=== PATIENT | male | born 1940 | race Caucasian/White ===

== ENCOUNTER 2016-08-21 10:38 | Inpatient (IN) ==
[2016-08-21] MEDS ORDERED: *HR* OxyCODONE Immed Rel 5 MG TABLET PO PRN (11:11)
[2016-08-21] MEDS: *HR* OxyCODONE Immed Rel 5 MG TABLET PO PRN (11:24)
--- NOTE | 2016-08-21 11:32 | Internal Med History&Physical ---
Date of Encounter: 08/21/16 Time of Encounter: 11:29 Assessment and Plan (1) Total knee replacement status Current visit: Yes Status: Acute Patient had total knee replacement he was transferred here for rehabilitation. Qualifiers: Laterality: left Qualified Code(s): Z96.652 - Presence of left artificial knee joint Internal Medicine - H&P: HPI Admitted From: Hospital to Hospital Transfer Plans for Post Hospital Care: Home History of present illness: Mr. Mcgrath is a 75 year old male She is here now for rehabilitation status post Past Med Surg Social Fam HX - Past Medical History Medical history: arthritis, coronary artery disease, hyperlipidemia, hypertension Psychiatric history: no psych history - Social History Smoking Status: Former smoker Smokeless Tobacco Status: No Alcohol use: none Drug use: none - Family History Father Living Status: Cause of : blood poisoning Mother Living Status: Cause of : mi/ diabetes Hx Family Cardiac Disorders: Yes Hx Family Endocrine Disorder: Yes Internal Medicine - H&P: Meds Aspirin Enteric Coated [Aspirin EC] 325 mg PO DAILY #21 tablet. 08/18/16 [Rx] OxyCODONE Immed Rel [Roxicodone 5 MG] 5 - 10 mg PO DAILY #14 tablet 08/18/16 [Rx ] Ascorbic Acid [Vitamin C] 600 mg PO DAILY 08/19/16 [History] Aspirin [Lo-Dose Aspirin EC] 81 mg PO DAILY 08/19/16 [History] Atorvastatin [Lipitor] 40 mg PO HS 08/19/16 [History] Cyanocobalamin (Vitamin B-12) [Vitamin B-12] 1,000 mcg SL DAILY 08/19/16 [ History] Ibuprofen [Motrin] 600 mg PO Q8HR PRN 08/19/16 [History] Lisinopril [Zestril] 20 mg PO DAILY 08/19/16 [History] Multivitamin [One Daily Essential] 1 each PO DAILY 08/19/16 [History] Omeprazole 20 mg PO DAILY 08/19/16 [History] Oxycodone HCl/Acetaminophen [Percocet 10-325 mg Tablet] 1 each PO Q6H PRN [History] Allergies No Known Allergies Allergy (Verified 08/19/16 07:45) All Systems PM: A 10-system review of systems was performed and is negative for pertinent findings except as documented above in the HPI. - Constitutional Vitals: Temp Pulse Resp BP Pulse Ox 98.1 F 106 20 164/91 92 08/21/16 10:54 08/21/16 10:54 08/21/16 10:54 08/21/16 10:54 08/21/16 10:54 - Head Head exam: Present: atraumatic, normal inspection, normocephalic - Neck Neck exam general surgery: Present: supple, trachea midline. Absent: lymphadenopathy - Respiratory Respiratory exam: Present: CTAB. Absent: accessory muscle use, rales, rhonchi, wheezes - Cardiovascular Cardiovascular exam: Present: RRR, +S1, +S2. Absent: diastolic murmur, gallop, rubs, systolic murmur Internal Med - H&P Results - Labs Labs: Pending
[2016-08-21] MEDS ORDERED: Ibuprofen 800 MG TABLET PO ONE (12:13)
[2016-08-22 05:16] LABS: INR 1.1; Prothrombin Time 12.4 Seconds (9.4-12.1)
[2016-08-22 05:17] LABS: Activated Partial Thrombo Time 25.5 Seconds (26.0-36.0)
[2016-08-22 05:18] LABS: Basophils # 0.1 K/mcL (0.0-0.2); Basophils % 0.4 %; Eosinophils # 0.2 K/mcL (0.0-0.6); Eosinophils % 1.3 %; Hematocrit 33.3 % (37.5-50.1); Hemoglobin 11.1 g/dL (12.9-16.9); Immature Granulocytes % 1.9 % (0-4); Lymphocytes % 12.8 %; Mean Corpuscular HGB Conc 33.3 g/dL (31.6-35.5); Mean Corpuscular Hemoglobin 29.8 pg (28.0-33.3); Mean Corpuscular Volume 89.5 fL (83.0-100.0); Mean Platelet Volume 9.5 fL (9.4-12.4); Monocytes # 1.7 K/mcL (0.0-1.3); Monocytes % 10.5 %; Neutrophils # 11.5 K/mcL (1.6-8.9); Platelet Count 165 K/mcL (140-400); Red Blood Count 3.72 M/mcL (4.19-5.50); Segmented Neutrophils % 73.1 %
[2016-08-22] MEDS: *HR* OxyCODONE Immed Rel 5 MG TABLET PO PRN ×4 (05:30→21:55)
[2016-08-22 05:41] LABS: BUN/Creatinine Ratio 19 (6-26); Blood Urea Nitrogen 21 mg/dL (8-26); Calcium 9.2 mg/dL (8.6-10.8); Carbon Dioxide 25 mEq/L (19-29); Chloride 104 mEq/L (98-109); Glucose 114 mg/dL (70-99); Osmolality,Calculated 292 (280-300); Potassium 4.1 mEq/L (3.5-4.5); Sodium 139 mEq/L (136-145); eGFR For African Americans > 60 (> 60); eGFR For Non-African Americans > 60 (> 60)
[2016-08-22] MEDS: Lisinopril 20 MG TABLET PO SCH (09:04)
[2016-08-22] MEDS: Ibuprofen 800 MG TABLET PO PRN (09:04)
[2016-08-22] MEDS: Cyanocobalamin (B-12) 1,000 MCG TABLET PO SCH (09:04)
[2016-08-22] MEDS: Multivit/Ca/Min/Fe/FA 1 TAB TABLET PO SCH (09:04)
[2016-08-22] MEDS: Ascorbic Acid 500 MG TABLET PO SCH (09:04)
--- NOTE | 2016-08-22 13:12 | Internal Med Progress Note ---
Date of Encounter: 08/22/16 Time of Encounter: 13:11 - Assessment and plan (1) Total knee replacement status Current Visit: Yes Status: Acute Assessment and plan: Patient is here for total knee replacement status post for osteoarthritis Qualifiers: Laterality: left Qualified Code(s): Z96.652 - Presence of left artificial knee joint - Time Spent With Patient less than 15 minutes - Subjective Interval history: Patient is here for a total knee replacement and rehabilitation. - Constitutional Vitals: Temp Pulse Resp BP Pulse Ox 98.2 F 98 16 150/89 95 08/22/16 07:33 08/22/16 07:33 08/22/16 07:33 08/22/16 07:33 08/22/16 07:33 - Head Head exam: Present: atraumatic, normocephalic - Neck Neck exam general surgery: Present: supple, trachea midline. Absent: lymphadenopathy - Respiratory Respiratory exam: Present: CTAB. Absent: accessory muscle use, rales, rhonchi, wheezes - Cardiovascular Cardiovascular exam: Present: RRR, +S1, +S2. Absent: diastolic murmur, gallop, rubs, systolic murmur Internal Medicine: Result - Labs CBC & Chem 7: 08/22/16 05:02 08/22/16 05:02 Labs: Short CBC 08/22/16 Range/Units 05:02 WBC 15.7 H (4.3-11.1) K/mcL Hgb 11.1 L (12.9-16.9) g/dL Hct 33.3 L (37.5-50.1) % Plt Count 165 (140-400) K/mcL Neutrophils # 11.5 H (1.6-8.9) K/mcL BMP 08/22/16 05:02 Sodium 139 Potassium 4.1 Chloride 104 Carbon Dioxide 25 BUN 21 Creatinine 1.10 Glucose 114 H Calcium 9.2 His white count salivated. I am going to check a chest x-ray. The dressing looks stable some old blood and I will check a urine 2. - ABG Interpretation ABG results: PT/INR, D-dimer PT 12.4 Seconds (9.4-12.1) H 08/22/16 05:02 Consult Discharge Plan - Plan Referrals: Rodolfo Madrigal DO [Primary Care Provider] -
[2016-08-22] MEDS: Aspirin Enteric Coated 325 MG Tablet PO SCH ×2 (15:52→21:55)
[2016-08-23] MEDS: *HR* OxyCODONE Immed Rel 5 MG TABLET PO PRN ×3 (06:14→22:10)
[2016-08-23] MEDS: Aspirin Enteric Coated 325 MG Tablet PO SCH ×2 (08:41→22:10)
[2016-08-23] MEDS: Lisinopril 20 MG TABLET PO SCH (08:41)
[2016-08-23] MEDS: Cyanocobalamin (B-12) 1,000 MCG TABLET PO SCH (08:41)
[2016-08-23] MEDS: Ascorbic Acid 500 MG TABLET PO SCH (08:41)
[2016-08-23] MEDS: Ibuprofen 800 MG TABLET PO PRN (08:41)
[2016-08-23] MEDS: Multivit/Ca/Min/Fe/FA 1 TAB TABLET PO SCH (08:41)
[2016-08-23 10:37] LABS: Basophils # 0.1 K/mcL (0.0-0.2); Basophils % 0.4 %; Eosinophils % 0.8 %; Hematocrit 33.9 % (37.5-50.1); Immature Granulocytes % 2.3 % (0-4); Lymphocytes # 1.7 K/mcL (0.6-4.6); Lymphocytes % 9.3 %; Mean Corpuscular HGB Conc 32.4 g/dL (31.6-35.5); Mean Corpuscular Hemoglobin 29.6 pg (28.0-33.3); Mean Corpuscular Volume 91.1 fL (83.0-100.0); Mean Platelet Volume 9.9 fL (9.4-12.4); Monocytes # 1.6 K/mcL (0.0-1.3); Monocytes % 8.5 %; Neutrophils # 14.5 K/mcL (1.6-8.9); Platelet Count 210 K/mcL (140-400); Red Blood Count 3.72 M/mcL (4.19-5.50); Red Cell Distribution Width 14.1 % (11.5-14.5); Segmented Neutrophils % 78.7 %
[2016-08-23 10:45] LABS: Eosinophils # 0.2 K/mcL (0.0-0.6)
--- NOTE | 2016-08-23 13:58 | Internal Med Progress Note ---
Date of Encounter: 08/23/16 Time of Encounter: 13:56 - Assessment and plan (1) Total knee replacement status Current Visit: Yes Status: Acute Assessment and plan: Patient is working with PT OT and TR. Qualifiers: Laterality: left Qualified Code(s): Z96.652 - Presence of left artificial knee joint - Time Spent With Patient less than 15 minutes - Subjective Interval history: Patient is here for a total knee replacement and rehabilitation. - Constitutional Vitals: Temp Pulse Resp BP Pulse Ox 98.1 F 116 16 101/71 96 08/23/16 07:00 08/23/16 07:00 08/23/16 07:00 08/23/16 07:00 08/23/16 07:00 - Head Head exam: Present: atraumatic, normal inspection, normocephalic - Neck Neck exam general surgery: Present: supple, trachea midline. Absent: lymphadenopathy - Respiratory Respiratory exam: Present: CTAB. Absent: accessory muscle use, rales, rhonchi, wheezes - Cardiovascular Cardiovascular exam: Present: RRR, +S1, +S2. Absent: diastolic murmur, gallop, rubs, systolic murmur Internal Medicine: Result - Labs CBC & Chem 7: 08/23/16 10:30 08/22/16 05:02 Labs: Short CBC 08/23/16 Range/Units 10:30 WBC 18.4 H (4.3-11.1) K/mcL Hgb 11.0 L (12.9-16.9) g/dL Hct 33.9 L (37.5-50.1) % Plt Count 210 (140-400) K/mcL Neutrophils # 14.5 H (1.6-8.9) K/mcL White count is up but the chest x-ray is clear and the lab looks good. Probably should check a UA - ABG Interpretation ABG results: PT/INR, D-dimer PT 12.4 Seconds (9.4-12.1) H 08/22/16 05:02 - Impressions Impressions Chest X-Ray 08/23/16 13:13 IMPRESSION: No acute cardiopulmonary disease. D/ / 08/23/2016 07:46:11 Hemanth Coleman MD / charan Interpreting Provider: Hemanth Coleman MD Consult Discharge Plan - Plan Referrals: Rodolfo Madrigal DO [Primary Care Provider] -
[2016-08-23 16:04] LABS: Bilirubin,Urine Negative (Negative); Blood,Urine Negative (Negative); Clarity,Urine Clear (Clear); Color,Urine Yellow (Yellow); Glucose,Urine (UA) Normal (Normal); Ketones,Urine Negative (Negative); Leukocyte Esterase,Urine Small (Negative); Nitrite,Urine Negative (Negative); PH,Urine 5.5 pH Units (5.0-8.0); Protein,Urine Negative (Neg-Trace); Urobilinogen,Urine Normal (Normal)
[2016-08-24] MEDS: *HR* OxyCODONE Immed Rel 5 MG TABLET PO PRN ×3 (05:27→21:31)
[2016-08-24 05:36] LABS: Basophils # 0.1 K/mcL (0.0-0.2); Basophils % 0.4 %; Eosinophils # 0.2 K/mcL (0.0-0.6); Eosinophils % 1.6 %; Hematocrit 30.8 % (37.5-50.1); Hemoglobin 10.1 g/dL (12.9-16.9); Immature Granulocytes % 2.7 % (0-4); Lymphocytes # 1.9 K/mcL (0.6-4.6); Lymphocytes % 13.1 %; Mean Corpuscular HGB Conc 32.8 g/dL (31.6-35.5); Mean Corpuscular Hemoglobin 29.7 pg (28.0-33.3); Mean Corpuscular Volume 90.6 fL (83.0-100.0); Mean Platelet Volume 9.5 fL (9.4-12.4); Monocytes # 1.3 K/mcL (0.0-1.3); Monocytes % 9.3 %; Platelet Count 201 K/mcL (140-400); Segmented Neutrophils % 72.9 %
[2016-08-24 05:37] LABS: Neutrophils # 10.4 K/mcL (1.6-8.9)
[2016-08-24] MEDS: Ascorbic Acid 500 MG TABLET PO SCH (09:28)
[2016-08-24] MEDS: Lisinopril 20 MG TABLET PO SCH (09:28)
[2016-08-24] MEDS: Aspirin Enteric Coated 325 MG Tablet PO SCH ×2 (09:28→21:31)
[2016-08-24] MEDS: Cyanocobalamin (B-12) 1,000 MCG TABLET PO SCH (09:28)
[2016-08-24] MEDS: Multivit/Ca/Min/Fe/FA 1 TAB TABLET PO SCH (09:28)
[2016-08-24] MEDS: Ibuprofen 800 MG TABLET PO PRN (09:31)
--- NOTE | 2016-08-24 11:56 | Internal Med Progress Note ---
Date of Encounter: 08/24/16 Time of Encounter: 11:54 - Assessment and plan (1) Total knee replacement status Current Visit: Yes Status: Acute Assessment and plan: . PT OT working on improving balance, ambulation, transfer, gait. Patient hesitant with ambulation. Attempting to hop and perform not weight bearing pattern Qualifiers: Laterality: left Qualified Code(s): Z96.652 - Presence of left artificial knee joint (2) Leukocytosis, unspecified Current Visit: Yes Status: Acute Assessment and plan: WBC from 18 K to 14 K. Afebrile. Chest x-ray urinalysis unremarkable. We will continue to monitor Qualifiers: Leukocytosis type: unspecified Qualified Code(s): D72.829 - Elevated white blood cell count, unspecified - Time Spent With Patient less than 15 minutes - Subjective Interval history: Complains of mild postop knee pain. No shortness of breath. No cough. No fever. No chills. - Constitutional Vitals: Temp Pulse Resp BP Pulse Ox 98.5 F 99 18 127/68 95 08/24/16 07:13 08/24/16 07:13 08/24/16 07:13 08/24/16 07:13 08/24/16 07:13 General appearance: Present: A&O X 3, pleasant, no acute distress - Respiratory Respiratory exam: Present: CTAB. Absent: accessory muscle use, rales, rhonchi, wheezes - Cardiovascular Cardiovascular exam: Present: RRR, +S1, +S2. Absent: diastolic murmur, gallop, rubs, systolic murmur - GI/Abdominal GI/Abdominal exam: Present: normal bowel sounds, soft, no peritoneal signs. Absent: distended, tenderness - Expanded Lower Extremities Exam Knee exam: Present: ecchymosis, swelling, tenderness - Incison Incision: Present: clean and dry Internal Medicine: Result - Labs CBC & Chem 7: 08/24/16 05:15 08/22/16 05:02 Labs: Short CBC 08/24/16 Range/Units 05:15 WBC 14.2 H (4.3-11.1) K/mcL Hgb 10.1 L (12.9-16.9) g/dL Hct 30.8 L (37.5-50.1) % Plt Count 201 (140-400) K/mcL Neutrophils # 10.4 H (1.6-8.9) K/mcL Urine 08/23/16 Range/Units 13:00 Urine Color Yellow (Yellow) Urine Clarity Clear (Clear) Urine pH 5.5 (5.0-8.0) pH Units Ur Specific [place] 1.010 (1.010-1.025) Urine Protein Negative (Neg-Trace) mg/dL Urine Glucose (UA) Normal (Normal) mg/dL - ABG Interpretation ABG results: PT/INR, D-dimer PT 12.4 Seconds (9.4-12.1) H 08/22/16 05:02 Consult Discharge Plan - Plan Referrals: Rodolfo Madrigal DO [Primary Care Provider] -
[2016-08-25] MEDS: Ibuprofen 800 MG TABLET PO PRN (02:27)
[2016-08-25] MEDS: Multivit/Ca/Min/Fe/FA 1 TAB TABLET PO SCH (10:08)
[2016-08-25] MEDS: Lisinopril 20 MG TABLET PO SCH (10:08)
[2016-08-25] MEDS: Ascorbic Acid 500 MG TABLET PO SCH (10:09)
[2016-08-25] MEDS: Cyanocobalamin (B-12) 1,000 MCG TABLET PO SCH (10:09)
[2016-08-25] MEDS: Aspirin Enteric Coated 325 MG Tablet PO SCH ×2 (10:09→22:51)
[2016-08-25] MEDS: *HR* OxyCODONE Immed Rel 5 MG TABLET PO PRN ×2 (13:34→23:42)
[2016-08-26 05:50] LABS: Basophils # 0.1 K/mcL (0.0-0.2); Basophils % 0.5 %; Eosinophils # 0.2 K/mcL (0.0-0.6); Eosinophils % 1.4 %; Hematocrit 31.7 % (37.5-50.1); Hemoglobin 10.3 g/dL (12.9-16.9); Immature Granulocytes % 2.1 % (0-4); Lymphocytes # 2.1 K/mcL (0.6-4.6); Lymphocytes % 15.8 %; Mean Corpuscular HGB Conc 32.5 g/dL (31.6-35.5); Mean Corpuscular Hemoglobin 29.5 pg (28.0-33.3); Mean Corpuscular Volume 90.8 fL (83.0-100.0); Mean Platelet Volume 9.3 fL (9.4-12.4); Monocytes # 1.4 K/mcL (0.0-1.3); Monocytes % 10.9 %; Platelet Count 253 K/mcL (140-400); Red Blood Count 3.49 M/mcL (4.19-5.50); Red Cell Distribution Width 13.9 % (11.5-14.5); Segmented Neutrophils % 69.3 %
[2016-08-26 05:54] LABS: Neutrophils # 9.2 K/mcL (1.6-8.9)
[2016-08-26] MEDS: *HR* OxyCODONE Immed Rel 5 MG TABLET PO PRN ×3 (05:58→17:59)
[2016-08-26 06:07] LABS: BUN/Creatinine Ratio 24 (6-26); Blood Urea Nitrogen 28 mg/dL (8-26); Carbon Dioxide 23 mEq/L (19-29); Chloride 107 mEq/L (98-109); Glucose 107 mg/dL (70-99); Osmolality,Calculated 294 (280-300); Potassium 4.8 mEq/L (3.5-4.5); Sodium 139 mEq/L (136-145); eGFR For African Americans > 60 (> 60); eGFR For Non-African Americans > 60 (> 60)
[2016-08-26] MEDS: Lisinopril 20 MG TABLET PO SCH (08:54)
[2016-08-26] MEDS: Aspirin Enteric Coated 325 MG Tablet PO SCH ×2 (08:54→20:02)
[2016-08-26] MEDS: Multivit/Ca/Min/Fe/FA 1 TAB TABLET PO SCH (08:54)
[2016-08-26] MEDS: Cyanocobalamin (B-12) 1,000 MCG TABLET PO SCH (08:54)
[2016-08-26] MEDS: Ibuprofen 800 MG TABLET PO PRN (08:54)
[2016-08-26] MEDS: Ascorbic Acid 500 MG TABLET PO SCH (08:54)
[2016-08-26] MEDS ORDERED: *HR* OxyCODONE Immed Rel 5 MG TABLET PO PRN (12:17)
--- NOTE | 2016-08-26 13:55 | Internal Med Progress Note ---
Date of Encounter: 08/26/16 Time of Encounter: 13:53 - Assessment and plan (1) Total knee replacement status Current Visit: Yes Status: Acute Assessment and plan: Patient's here for rehabilitation status post knee replacement. It is noted today that he has about 3 mm pretibial edema. Homans is negative but it is shiny and tight. I am increasing his Lasix elevating the leg between therapies and after work and also use the ice or polar pack Qualifiers: Laterality: left Qualified Code(s): Z96.652 - Presence of left artificial knee joint - Time Spent With Patient less than 15 minutes - Subjective Interval history: Patient is here for a total knee replacement and rehabilitation. Patient's here for rehabilitation status post left total knee replaced - Constitutional Vitals: Temp Pulse Resp BP Pulse Ox 98.2 F 85 16 137/79 93 08/26/16 07:25 08/26/16 07:25 08/26/16 07:25 08/26/16 07:25 08/26/16 07:25 General appearance: Present: A&O X 3, pleasant, no acute distress - Head Head exam: Present: atraumatic, normocephalic - Neck Neck exam general surgery: Present: supple, trachea midline. Absent: lymphadenopathy - Respiratory Respiratory exam: Present: CTAB. Absent: accessory muscle use, rales, rhonchi, wheezes - Cardiovascular Cardiovascular exam: Present: RRR, +S1, +S2. Absent: diastolic murmur, gallop, rubs, systolic murmur Internal Medicine: Result - Labs CBC & Chem 7: 08/26/16 05:00 08/26/16 05:00 Labs: Short CBC 08/26/16 Range/Units 05:00 WBC 13.2 H (4.3-11.1) K/mcL Hgb 10.3 L (12.9-16.9) g/dL Hct 31.7 L (37.5-50.1) % Plt Count 253 (140-400) K/mcL Neutrophils # 9.2 H (1.6-8.9) K/mcL BMP 08/26/16 05:00 Sodium 139 Potassium 4.8 H Chloride 107 Carbon Dioxide 23 BUN 28 H Creatinine 1.16 Glucose 107 H Calcium 9.0 - ABG Interpretation ABG results: PT/INR, D-dimer PT 12.4 Seconds (9.4-12.1) H 08/22/16 05:02 Consult Discharge Plan - Plan Referrals: Rodolfo Madrigal DO [Primary Care Provider] -
[2016-08-26] MEDS ORDERED: *HR* Enoxaparin 100 MG/ML SYRINGE SQ SCH (14:00)
[2016-08-27] MEDS: *HR* OxyCODONE Immed Rel 5 MG TABLET PO PRN ×4 (05:15→20:33)
[2016-08-27] MEDS: *HR* Enoxaparin 100 MG/ML SYRINGE SQ SCH ×2 (05:15→17:37)
[2016-08-27] MEDS: Cyanocobalamin (B-12) 1,000 MCG TABLET PO SCH (08:37)
[2016-08-27] MEDS: Multivit/Ca/Min/Fe/FA 1 TAB TABLET PO SCH (08:37)
[2016-08-27] MEDS: Aspirin Enteric Coated 325 MG Tablet PO SCH ×2 (08:37→20:33)
[2016-08-27] MEDS: Lisinopril 20 MG TABLET PO SCH (08:37)
[2016-08-27] MEDS: Ascorbic Acid 500 MG TABLET PO SCH (08:37)
[2016-08-27] MEDS: Ibuprofen 800 MG TABLET PO PRN (08:42)
--- NOTE | 2016-08-27 14:04 | Internal Med Progress Note ---
Date of Encounter: 08/27/16 Time of Encounter: 14:04 - Assessment and plan (1) Total knee replacement status Current Visit: Yes Status: Acute Assessment and plan: Ration had a total knee replacement for osteoarthritis. He is doing well working with therapy and the swelling is somewhat diminished Qualifiers: Laterality: left Qualified Code(s): Z96.652 - Presence of left artificial knee joint - Time Spent With Patient less than 15 minutes - Subjective Interval history: Patient is here for a total knee replacement and rehabilitation. Patient's here for rehabilitation status post left total knee replaced. The dressing looks okay I think that preview edema slightly diminished his output is excellent. He is icing and elevating it after therapy - Constitutional Vitals: Temp Pulse Resp BP Pulse Ox 98.6 F 100 16 165/77 94 08/27/16 07:16 08/27/16 07:16 08/27/16 07:16 08/27/16 07:16 08/27/16 07:16 General appearance: Present: A&O X 3, pleasant, no acute distress - Head Head exam: Present: atraumatic, normal inspection, normocephalic - Respiratory Respiratory exam: Present: CTAB. Absent: accessory muscle use, rales, rhonchi, wheezes - Cardiovascular Cardiovascular exam: Present: RRR, +S1, +S2. Absent: diastolic murmur, gallop, rubs, systolic murmur - GI/Abdominal GI/Abdominal exam: Present: normal bowel sounds, soft, no peritoneal signs. Absent: distended, tenderness Internal Medicine: Result - Labs CBC & Chem 7: 08/26/16 05:00 08/26/16 05:00 Labs: labs pretty abs pretty good white count stayed - ABG Interpretation ABG results: PT/INR, D-dimer PT 12.4 Seconds (9.4-12.1) H 08/22/16 05:02 Consult Discharge Plan - Plan Referrals: Rodolfo Madrigal DO [Primary Care Provider] -
[2016-08-28] MEDS: *HR* OxyCODONE Immed Rel 5 MG TABLET PO PRN ×4 (06:29→21:06)
[2016-08-28] MEDS: *HR* Enoxaparin 100 MG/ML SYRINGE SQ SCH ×2 (06:29→17:51)
[2016-08-28] MEDS: Cyanocobalamin (B-12) 1,000 MCG TABLET PO SCH (08:10)
[2016-08-28] MEDS: Multivit/Ca/Min/Fe/FA 1 TAB TABLET PO SCH (08:10)
[2016-08-28] MEDS: Ibuprofen 800 MG TABLET PO PRN (08:10)
[2016-08-28] MEDS: Ascorbic Acid 500 MG TABLET PO SCH (08:10)
[2016-08-28] MEDS: Lisinopril 20 MG TABLET PO SCH (08:10)
[2016-08-28] MEDS: Aspirin Enteric Coated 325 MG Tablet PO SCH ×2 (08:10→21:05)
--- NOTE | 2016-08-28 12:50 | Physical Med Progress Note ---
Date of Encounter: 08/28/16 Time of Encounter: 12:42 Physical Medicine-PN: Subj Interval history: PMR PCC note Mr. Mcgrath is admitted following a left TKR. His knee ROM is -16 to 80. He has been wearing a knee immobilizer at night. Patient has poor endurance. Only tolerating short periods of standing. Patient ambulating 15 to 20 feet. He has difficulty bearing weight on the left leg. He has very poor pain tolerance. Patient is unsafe with ambulation. We focus on wheelchair mobility and transfer safety. Plan to extend his stay to 08/31/16. - Constitutional Vitals: Vital Signs Temp Pulse Resp BP Pulse Ox 08/28/16 07:11 98.8 F 82 18 136/73 92 08/27/16 19:11 98.2 F 86 16 145/64 93 Intake and Output 08/27/16 08/28/16 08/28/16 23:59 07:59 15:59 Intake Total 490 / 490 520 / 520 Output Total 225 / 225 725 / 725 250 / 250 Balance 265 / 265 -725 / -725 270 / 270 Intake: Oral 490 / 490 520 / 520 Output: Urine 225 / 225 725 / 725 250 / 250 Other: Meal Dinner Breakfast Percent of Meal Consumed 100% 100% Physical Medicine-PN: Obj Data - Labs CBC & Chem 7: 08/26/16 05:00 08/26/16 05:00 - ABG Interpretation ABG results: PT/INR, D-dimer PT 12.4 Seconds (9.4-12.1) H 08/22/16 05:02 Consult Discharge Plan - Plan Referrals: Rodolfo Madrigal DO [Primary Care Provider] -
--- NOTE | 2016-08-28 13:49 | Internal Med Progress Note ---
Date of Encounter: 08/28/16 Time of Encounter: 13:48 - Assessment and plan (1) Total knee replacement status Current Visit: Yes Status: Acute Qualifiers: Laterality: left Qualified Code(s): Z96.652 - Presence of left artificial knee joint - Subjective Interval history: Patient is here for a total knee replacement and rehabilitation. Patient's here for rehabilitation status post left total knee replaced. The dressing looks okay I think that preview edema slightly diminished his output is excellent. He is icing and elevating it after therapy. As above the edema slightly improved but he is still swollen and tender and even O Homans is negative with no lower extremity Doppler on the left to rule out DVT - Constitutional Vitals: Temp Pulse Resp BP Pulse Ox 98.8 F 82 18 136/73 92 08/28/16 07:11 08/28/16 07:11 08/28/16 07:11 08/28/16 07:11 08/28/16 07:11 General appearance: Present: A&O X 3, pleasant, no acute distress Internal Medicine: Result - Labs CBC & Chem 7: 08/26/16 05:00 08/26/16 05:00 - ABG Interpretation ABG results: PT/INR, D-dimer PT 12.4 Seconds (9.4-12.1) H 08/22/16 05:02 Consult Discharge Plan - Plan Referrals: Rodolfo Madrigal DO [Primary Care Provider] -
[2016-08-29] MEDS: *HR* OxyCODONE Immed Rel 5 MG TABLET PO PRN ×3 (05:14→18:43)
[2016-08-29] MEDS: *HR* Enoxaparin 100 MG/ML SYRINGE SQ SCH ×2 (05:15→18:11)
[2016-08-29] MEDS: Aspirin Enteric Coated 325 MG Tablet PO SCH ×2 (09:19→21:05)
[2016-08-29] MEDS: Ibuprofen 800 MG TABLET PO PRN (09:19)
[2016-08-29] MEDS: Multivit/Ca/Min/Fe/FA 1 TAB TABLET PO SCH (09:20)
[2016-08-29] MEDS: Cyanocobalamin (B-12) 1,000 MCG TABLET PO SCH (09:20)
[2016-08-29] MEDS: Lisinopril 20 MG TABLET PO SCH (09:20)
[2016-08-29] MEDS: Ascorbic Acid 500 MG TABLET PO SCH (09:21)
--- NOTE | 2016-08-29 14:00 | Internal Med Progress Note ---
Date of Encounter: 08/29/16 Time of Encounter: 13:58 - Assessment and plan (1) Total knee replacement status Current Visit: Yes Status: Acute Assessment and plan: Dani down erythema mid anterior tibial area. The incision has some old dry blood but nothing new and we are progressing he is using his CPM.. Qualifiers: Laterality: left Qualified Code(s): Z96.652 - Presence of left artificial knee joint - Time Spent With Patient less than 15 minutes - Subjective Interval history: Swelling is down the leg is not as tight Doppler showed no DVT. Erythema about mid tibia anteriorly but other than that the incision looks clean and dry some old blood on the dressing but nothing new. - Constitutional Vitals: Temp Pulse Resp BP Pulse Ox 98.2 F 108 16 125/75 94 08/29/16 07:31 08/29/16 07:31 08/29/16 07:31 08/29/16 07:31 08/29/16 07:31 General appearance: Present: A&O X 3, pleasant, no acute distress - Head Head exam: Present: atraumatic, normal inspection, normocephalic - Neck Neck exam general surgery: Present: supple, trachea midline. Absent: lymphadenopathy - Respiratory Respiratory exam: Present: CTAB. Absent: accessory muscle use, rales, rhonchi, wheezes - Cardiovascular Cardiovascular exam: Present: RRR, +S1, +S2. Absent: diastolic murmur, gallop, rubs, systolic murmur Internal Medicine: Result - Labs CBC & Chem 7: 08/26/16 05:00 08/26/16 05:00 Labs: Labs stable - ABG Interpretation ABG results: PT/INR, D-dimer PT 12.4 Seconds (9.4-12.1) H 08/22/16 05:02 Consult Discharge Plan - Plan Referrals: Rodolfo Madrigal DO [Primary Care Provider] -
--- NOTE | 2016-08-29 17:20 | Venous Imaging Report ---
LE Venous Duplex Patient Name:Mario Mcgrath Order Number:[id number] Procedure Date:08/28/2016 Date:1940ge:75 yrs Gender:Male Location:[facility] OP Room #: 109A Criminology Professor:Nelsy Jordan RVT Referring MD:Eladio Maher DO [employer] oil [employer] superintendent:Clemente Madrigal DO Reading MD:Tino Gray MD Primary Indications:increased pain \T\ swelling left leg Secondary Indications: Risk Factors Yes/No Hx of DVT No Hx of Chemotherapy No Anticoagulants Yes Recent Surgery Yes Impressions: Left lower extremity: normal superficial and deep exam. Recommendations: Critical findings reported to Nurse in person by Nelsy Jordan RVT. Findings Venous Duplex Results: Right: Venous imaging of the lower extremity reveals full patency and normal vessel compressibility of the right common femoral. Doppler signals in the evaluated veins were normal. Left: Venous imaging of the lower extremity reveals full patency and normal vessel compressibility of the left distal iliac, left common femoral, left superficial femoral, left popliteal, left posterior tibial, left great saphenous and left lesser saphenous. Doppler signals in the evaluated veins were normal. Prior Study: No prior study available for comparison. Lower Extremity Venous Duplex Side Vein Compress Spontaneous Flow Augment Diameter (cm) Depth (cm) Left Distal Iliac Normal Yes Phasic Yes Left Common Femoral Normal Yes Phasic Yes Left Superficial Femoral Normal Yes Phasic Yes Left Popliteal Normal Yes Phasic Yes Left Posterior Tibial Normal Yes Phasic Yes Left Great Saphenous Normal Yes Phasic Yes Left Lesser Saphenous Normal Yes Phasic Yes Right Common Femoral Normal Yes Phasic Yes Updated by Tino Gray MD on 08/29/2016 5:13:44 PM electronically signed on 08/29/2016 5:13:54 PM with status of Final
[2016-08-30 05:10] LABS: BUN/Creatinine Ratio 23 (6-26); Blood Urea Nitrogen 27 mg/dL (8-26); Calcium 9.1 mg/dL (8.6-10.8); Carbon Dioxide 23 mEq/L (19-29); Chloride 106 mEq/L (98-109); Glucose 106 mg/dL (70-99); Osmolality,Calculated 292 (280-300); Potassium 4.7 mEq/L (3.5-4.5); Sodium 138 mEq/L (136-145); eGFR For African Americans > 60 (> 60); eGFR For Non-African Americans 60 (> 60)
[2016-08-30] MEDS: *HR* Enoxaparin 100 MG/ML SYRINGE SQ SCH ×2 (05:40→17:00)
[2016-08-30] MEDS: *HR* OxyCODONE Immed Rel 5 MG TABLET PO PRN ×3 (05:41→22:31)
[2016-08-30] MEDS: Ibuprofen 800 MG TABLET PO PRN ×2 (07:56→15:31)
[2016-08-30] MEDS: Aspirin Enteric Coated 325 MG Tablet PO SCH ×2 (08:13→22:31)
[2016-08-30] MEDS: Ascorbic Acid 500 MG TABLET PO SCH (08:14)
[2016-08-30] MEDS: Multivit/Ca/Min/Fe/FA 1 TAB TABLET PO SCH (08:14)
[2016-08-30] MEDS: Cyanocobalamin (B-12) 1,000 MCG TABLET PO SCH (08:14)
[2016-08-30] MEDS: Lisinopril 20 MG TABLET PO SCH (08:14)
--- NOTE | 2016-08-30 13:13 | Internal Med Progress Note ---
Date of Encounter: 08/30/16 Time of Encounter: 13:11 - Assessment and plan (1) Total knee replacement status Current Visit: Yes Status: Acute Assessment and plan: Patient is here for total knee replacement and it is improved. The edema is down the erythematous changes are improved and I think they are somewhat less pain he is moving better and ambulating better Qualifiers: Laterality: left Qualified Code(s): Z96.652 - Presence of left artificial knee joint - Time Spent With Patient less than 15 minutes - Subjective Interval history: Swelling is down the leg is not as tight Doppler showed no DVT. Erythema about mid tibia anteriorly but other than that the incision looks clean and dry some old blood on the dressing but nothing new. Patient requested lidocaine patch for back leg. Really still does complain quite a bit of discomfort. swellings down otherwise improved - Constitutional Vitals: Temp Pulse Resp BP Pulse Ox 98.2 F 99 18 160/79 91 08/30/16 07:29 08/30/16 07:29 08/30/16 07:29 08/30/16 07:29 08/30/16 07:29 General appearance: Present: A&O X 3, pleasant, no acute distress - Head Head exam: Present: atraumatic, normal inspection, normocephalic - Neck Neck exam general surgery: Present: supple, trachea midline. Absent: lymphadenopathy - Respiratory Respiratory exam: Present: CTAB. Absent: accessory muscle use, rales, rhonchi, wheezes - Cardiovascular Cardiovascular exam: Present: RRR, +S1, +S2. Absent: diastolic murmur, gallop, rubs, systolic murmur Internal Medicine: Result - Labs CBC & Chem 7: 08/26/16 05:00 08/30/16 04:40 Labs: BMP 08/30/16 04:40 Sodium 138 Potassium 4.7 H Chloride 106 Carbon Dioxide 23 BUN 27 H Creatinine 1.18 Glucose 106 H Calcium 9.1 Labs stable - ABG Interpretation ABG results: PT/INR, D-dimer PT 12.4 Seconds (9.4-12.1) H 08/22/16 05:02 Consult Discharge Plan - Plan Referrals: Rodolfo Madrigal DO [Primary Care Provider] -
[2016-08-31] MEDS: *HR* Enoxaparin 100 MG/ML SYRINGE SQ SCH ×2 (05:54→17:17)
[2016-08-31] MEDS: *HR* OxyCODONE Immed Rel 5 MG TABLET PO PRN ×3 (05:55→20:40)
[2016-08-31] MEDS: Ascorbic Acid 500 MG TABLET PO SCH (08:17)
[2016-08-31] MEDS: Multivit/Ca/Min/Fe/FA 1 TAB TABLET PO SCH (08:17)
[2016-08-31] MEDS: Aspirin Enteric Coated 325 MG Tablet PO SCH ×2 (08:17→20:39)
[2016-08-31] MEDS: Lisinopril 20 MG TABLET PO SCH (08:17)
[2016-08-31] MEDS: Cyanocobalamin (B-12) 1,000 MCG TABLET PO SCH (08:17)
[2016-08-31] MEDS: Ibuprofen 800 MG TABLET PO PRN ×2 (10:20→18:50)
[2016-08-31] MEDS: MOM Conc 10 ML UD.LIQ PO PRN (14:05)
--- NOTE | 2016-08-31 14:32 | Internal Med Progress Note ---
Date of Encounter: 08/31/16 Time of Encounter: 14:30 - Assessment and plan (1) Total knee replacement status Current Visit: Yes Status: Acute Assessment and plan: PT OT working to improve gait, balance and endurance in transfer He has been wearing a knee immobilizer at night. Patient has poor endurance. Only tolerating short periods of standing. Patient ambulating 15 to 20 feet. He has difficulty bearing weight on the left leg. . Patient is unsafe with ambulation. We focus on wheelchair mobility and transfer safety. Qualifiers: Laterality: left Qualified Code(s): Z96.652 - Presence of left artificial knee joint (2) Leukocytosis, unspecified Current Visit: Yes Status: Acute Qualifiers: Leukocytosis type: unspecified Qualified Code(s): D72.829 - Elevated white blood cell count, unspecified - Time Spent With Patient less than 15 minutes - Subjective Interval history: Patient feels like he is getting stronger. Complains of mild postop knee pain. No shortness of breath. No cough. No fever. No chills. - Constitutional Vitals: Temp Pulse Resp BP Pulse Ox 98.3 F 98 16 129/75 92 08/31/16 07:00 08/31/16 07:00 08/31/16 07:00 08/31/16 07:00 08/31/16 07:00 General appearance: Present: A&O X 3, pleasant, no acute distress - Respiratory Respiratory exam: Present: CTAB. Absent: accessory muscle use, rales, rhonchi, wheezes - Cardiovascular Cardiovascular exam: Present: RRR, +S1, +S2. Absent: diastolic murmur, gallop, rubs, systolic murmur - GI/Abdominal GI/Abdominal exam: Present: normal bowel sounds, soft, no peritoneal signs. Absent: distended, tenderness - Expanded Lower Extremities Exam Knee exam: Present: ecchymosis, swelling, tenderness - Incison Incision: Present: clean and dry - Neurological Exam Neurological exam: Present: CN II-XII intact, oriented X3, no focal deficits. Absent: pronater drift, facial droop, speech deficit Internal Medicine: Result - Labs CBC & Chem 7: 08/26/16 05:00 08/30/16 04:40 - ABG Interpretation ABG results: PT/INR, D-dimer PT 12.4 Seconds (9.4-12.1) H 08/22/16 05:02 Consult Discharge Plan - Plan Referrals: Rodolfo Madrigal DO [Primary Care Provider] -
[2016-09-01] MEDS: *HR* Enoxaparin 100 MG/ML SYRINGE SQ SCH ×2 (06:14→17:06)
[2016-09-01] MEDS: Lisinopril 20 MG TABLET PO SCH (08:20)
[2016-09-01] MEDS: Ascorbic Acid 500 MG TABLET PO SCH (08:20)
[2016-09-01] MEDS: *HR* OxyCODONE Immed Rel 5 MG TABLET PO PRN ×3 (08:20→17:42)
[2016-09-01] MEDS: Cyanocobalamin (B-12) 1,000 MCG TABLET PO SCH (08:20)
[2016-09-01] MEDS: Multivit/Ca/Min/Fe/FA 1 TAB TABLET PO SCH (08:20)
[2016-09-01] MEDS: Aspirin Enteric Coated 325 MG Tablet PO SCH ×2 (08:21→20:36)
[2016-09-01] MEDS: Ibuprofen 800 MG TABLET PO PRN ×2 (10:30→20:35)
[2016-09-02] MEDS: *HR* Enoxaparin 100 MG/ML SYRINGE SQ SCH ×2 (06:05→18:08)
[2016-09-02] MEDS: *HR* OxyCODONE Immed Rel 5 MG TABLET PO PRN ×4 (06:05→20:50)
[2016-09-02 06:11] LABS: Basophils # 0.1 K/mcL (0.0-0.2); Basophils % 0.5 %; Eosinophils # 0.2 K/mcL (0.0-0.6); Eosinophils % 1.4 %; Hematocrit 27.1 % (37.5-50.1); Hemoglobin 8.8 g/dL (12.9-16.9); Immature Granulocytes % 3.8 % (0-4); Lymphocytes # 1.7 K/mcL (0.6-4.6); Lymphocytes % 13.1 %; Mean Corpuscular HGB Conc 32.5 g/dL (31.6-35.5); Mean Corpuscular Hemoglobin 29.4 pg (28.0-33.3); Mean Corpuscular Volume 90.6 fL (83.0-100.0); Mean Platelet Volume 8.9 fL (9.4-12.4); Monocytes # 1.1 K/mcL (0.0-1.3); Monocytes % 8.1 %; Neutrophils # 9.5 K/mcL (1.6-8.9); Platelet Count 341 K/mcL (140-400); Red Blood Count 2.99 M/mcL (4.19-5.50); Red Cell Distribution Width 13.6 % (11.5-14.5); Segmented Neutrophils % 73.1 %
[2016-09-02 06:17] LABS: BUN/Creatinine Ratio 20 (6-26); Blood Urea Nitrogen 23 mg/dL (8-26); Calcium 8.9 mg/dL (8.6-10.8); Carbon Dioxide 25 mEq/L (19-29); Chloride 109 mEq/L (98-109); Glucose 96 mg/dL (70-99); Osmolality,Calculated 296 (280-300); Sodium 141 mEq/L (136-145); eGFR For African Americans > 60 (> 60); eGFR For Non-African Americans > 60 (> 60)
[2016-09-02] MEDS: Ascorbic Acid 500 MG TABLET PO SCH (08:42)
[2016-09-02] MEDS: Cyanocobalamin (B-12) 1,000 MCG TABLET PO SCH (08:42)
[2016-09-02] MEDS: Aspirin Enteric Coated 325 MG Tablet PO SCH ×2 (08:42→20:50)
[2016-09-02] MEDS: MOM Conc 10 ML UD.LIQ PO PRN (08:42)
[2016-09-02] MEDS: Lisinopril 20 MG TABLET PO SCH (08:43)
[2016-09-02] MEDS: Multivit/Ca/Min/Fe/FA 1 TAB TABLET PO SCH (08:43)
--- NOTE | 2016-09-02 14:03 | Discharge Summary ---
Date of Encounter: 09/02/16 Time of Encounter: 14:03 - Discharge Diagnosis (1) Total knee replacement status Priority: Primary Status: Acute Comments: He is to do household distances patient has follow-up appointment with his surgeon and we will will do outpatient therapy. Qualifiers: Laterality: left Qualified Code(s): Z96.652 - Presence of left artificial knee joint - Discharge Medications Home Medications: Aspirin Enteric Coated [Aspirin EC] 325 mg PO DAILY #21 tablet. 08/18/16 [Rx] OxyCODONE Immed Rel [Roxicodone 5 MG] 5 - 10 mg PO DAILY #14 tablet 08/18/16 [Rx ] Ascorbic Acid [Vitamin C] 600 mg PO DAILY 08/19/16 [History] Aspirin [Lo-Dose Aspirin EC] 81 mg PO DAILY 08/19/16 [History] Atorvastatin [Lipitor] 40 mg PO HS 08/19/16 [History] Cyanocobalamin (Vitamin B-12) [Vitamin B-12] 1,000 mcg SL DAILY 08/19/16 [ History] Ibuprofen [Motrin] 600 mg PO Q8HR PRN 08/19/16 [History] Lisinopril [Zestril] 20 mg PO DAILY 08/19/16 [History] Multivitamin [One Daily Essential] 1 each PO DAILY 08/19/16 [History] Omeprazole 20 mg PO DAILY 08/19/16 [History] Oxycodone HCl/Acetaminophen [Percocet 10-325 mg Tablet] 1 each PO Q6H PRN [History] Allergies/Adverse Reactions: Allergies No Known Allergies Allergy (Verified 08/19/16 07:45) Date of admission: 08/21/16 10:38 Primary care physician: Rodolfo Madrigal Consults: 08/21/16 12:02 Consult to Occupational Therapy [CONS] Routine Comment: Evaluate, develop and implement POC Consult to Physical Medicine/Rehab [CONS] Routine Reason for Consult: s/p left total knee Call Completed: Yes Consult to Physical Therapy [CONS] Routine Comment: Evaluate, develop and implement POC Consult to Recreational Therapy [CONS] Routine Comment: Evaluate, develop and implement POC Consult to [facility] [CONS] Routine Reason for SW Consult: discharge planning Discharging clinician: Eladio Maher Anticipated date of discharge: 09/02/16 - Patient Status Disposition: Home, Self-Care Condition: Good Functional capacity at discharge: uses cane/walker Overall status at discharge: patient is progressing back to baseline - Discharge Instructions Follow Up With: Rodolfo Madrigal DO [Primary Care Provider] - - Diet and Activity Activity: ambulate only with your walker Diet: advance to your usual diet Interval History: She came in postoperative fleas been slow a lot of pain but is doing household distances Hospital course: Mr. Mcgrath is a 75 year old male - Time Spent with Patient Total time spent providing and/or coordinating discharge services: Less than 30 minutes - Constitutional Vitals: Temp Pulse Resp BP Pulse Ox 98.5 F 88 18 153/77 96 09/02/16 06:41 09/02/16 06:41 09/02/16 06:41 09/02/16 06:41 09/02/16 06:41 General appearance: Present: A&O X 3, pleasant, no acute distress - Head Head exam: Present: atraumatic, normal inspection, normocephalic - Neck Neck exam general surgery: Present: supple, trachea midline. Absent: lymphadenopathy - Respiratory Respiratory exam: Present: CTAB. Absent: accessory muscle use, rales, rhonchi, wheezes - Cardiovascular Cardiovascular exam: Present: RRR, +S1, +S2. Absent: diastolic murmur, gallop, rubs, systolic murmur
[2016-09-02] MEDS: Ibuprofen 800 MG TABLET PO PRN (18:08)
[2016-09-03] MEDS ORDERED: Silver Nitrate Applicator 1 STICK..EA. TP ONE (02:20)
[2016-09-03] MEDS: *HR* Enoxaparin 100 MG/ML SYRINGE SQ SCH (04:58)
[2016-09-03] MEDS: *HR* OxyCODONE Immed Rel 5 MG TABLET PO PRN ×2 (04:58→09:05)
[2016-09-03 05:18] LABS: Hematocrit 28.9 % (37.5-50.1); Hemoglobin 9.4 g/dL (12.9-16.9)
[2016-09-03 07:09] VITALS: BP 113/78
[2016-09-03] MEDS: Aspirin Enteric Coated 325 MG Tablet PO SCH (09:04)
[2016-09-03] MEDS: Cyanocobalamin (B-12) 1,000 MCG TABLET PO SCH (09:04)
[2016-09-03] MEDS: Multivit/Ca/Min/Fe/FA 1 TAB TABLET PO SCH (09:05)
[2016-09-03] MEDS: Ascorbic Acid 500 MG TABLET PO SCH (09:05)
[2016-09-03] MEDS: Lisinopril 20 MG TABLET PO SCH (09:05)
== END 2016-09-03 12:00 | disposition home or self-care (01) | DRG 561 ==
LOC: INPGRE 10:38
PROVIDERS: ADMIT Internal Medicine; ATTEND Internal Medicine